=== PATIENT | female | born 1950 | race Caucasian/White ===

== ENCOUNTER 2016-03-11 13:55 | Emergency (ER) | payer OTHER ==
[~2016-03-11] VITALS: Ht 162.6 cm; Wt 88.6 kg
[2016-03-11 14:03] VITALS: BP 136/63; TEMP 98.3
[2016-03-11] MEDS ORDERED: CRESTOR5 MG (14:22)
[2016-03-11] MEDS ORDERED: LYRICA 25MG CAP25 MG (14:22)
[2016-03-11] MEDS ORDERED: CELEBREX50 MG (14:23)
[2016-03-11] MEDS ORDERED: UNKOWN (14:25)
[2016-03-11 14:55] LABS: PH 5 (5-8); SQUAMOUS EPITHELIAL 0-2 /hpf; URINE APPEARANCE Hazy; URINE BACTERIA None Seen /hpf; URINE BILIRUBIN Negative (NEGATIVE); URINE BLOOD 3+ (NEGATIVE); URINE COLOR Yellow; URINE GLUCOSE 1+ (NEGATIVE); URINE KETONE Negative (NEGATIVE); URINE RBC >50 /hpf; URINE UROBILINOGEN Negative (NEGATIVE); URINE WBC 0-2 /hpf
[2016-03-11] MEDS ORDERED: NORCO 325 MG-51 TAB PO (15:39)
[2016-03-11] MEDS ORDERED: AMOXICILLIN 50500 MG PO (15:39)
[2016-03-11 15:44] VITALS: PULSE 73
== END 2016-03-11 15:47 | disposition home or self-care (01) ==
LOC: COL.ER 13:55
PROVIDERS: Emergency Medicine
DX: K04.7 Periapical abscess without sinus (principal); R31.9 Hematuria, unspecified; Z87.442 Personal history of urinary calculi; E11.9 Type 2 diabetes mellitus without complications; Z79.84 Long term (current) use of oral hypoglycemic drugs; I10 Essential (primary) hypertension

== ENCOUNTER 2018-05-24 17:21 | Emergency (ER) | payer MEDICARE ==
[~2018-05-24] VITALS: Ht 162.6 cm; Wt 90.0 kg
[~2018-05-24 17:21] MED LIST: AMOXICILLIN 50500 MG PO; CELEBREX50 MG; CRESTOR5 MG; LYRICA 25MG CAP25 MG; NORCO 325 MG-51 TAB PO; UNKOWN
[2018-05-24] MEDS ORDERED: HCTZ12.5TAB (17:38)
[2018-05-24 18:02] LABS: BASO # 0.1 (0.0-0.2); BASO % 0.7 % (0.0-2.0); EOS # 0.1 (0.0-0.7); EOS % 1.8 % (0-4.0); GRAN # 4.6 (1.4-6.5); HEMOGLOBIN 13.6 g/dl (12.5-16.0); LYMPH # 1.9 (1.2-3.4); LYMPH % 26.7 % (20.0-51.0); MEAN CELL VOLUME 93 fl (80.0-100.0); MEAN CORPUSCULAR HEMOGLOBIN 31 pg (27.0-31.0); MEAN CORPUSCULAR HGB CONC 33 g/dl (33.0-37.0); MEAN PLATELET VOLUME 8.9 fl (7.4-10.4); MONO # 0.4 (0.1-0.6); MONO % 6.1 % (1.7-9.3); PLATELET COUNT 248 K/mm3 (130-400); REDCELL DISTRIBUTION WIDTH-CV 12.7 % (11.5-14.5)
[2018-05-24 18:10] LABS: ALBUMIN 4.2 gm/dL (3.5-5.0); BILIRUBIN,TOTAL 0.4 mg/dL (0.0-1.0); CALCIUM 10.2 mg/dL (8.4-10.2); CREATININE, serum 0.78 (0.52-1.25); POTASSIUM 3.8 mmol/L (3.4-5.0); TOTAL PROTEIN 7.5 gm/dL (6.4-8.2)
[2018-05-25 08:19] VITALS: BP 154/77; PULSE 95; TEMP 98.6
== END 2018-05-25 08:33 | disposition short-term general hospital (02) ==
LOC: COL.ER 17:21
PROVIDERS: Emergency Medicine
DX: S22.061A Stable burst fracture of T7-T8 vertebra, initial encounter for closed fracture (principal); S40.011A Contusion of right shoulder, initial encounter; S70.01XA Contusion of right hip, initial encounter; I10 Essential (primary) hypertension; E11.9 Type 2 diabetes mellitus without complications; G89.29 Other chronic pain; M54.9 Dorsalgia, unspecified; W03.XXXA Other fall on same level due to collision with another person, initial encounter; Y92.410 Unspecified street and highway as the place of occurrence of the external cause
CPT/HCPCS: J1170; J2405; J3010; J7040

== ENCOUNTER 2018-05-29 09:44 | Inpatient (IN) | payer MEDICARE ==
[~2018-05-29] VITALS: Ht 162.6 cm; Wt 90.7 kg
[~2018-05-29 09:44] MED LIST changes: +CRESTOR 10MG10 MG PO; -CRESTOR5 MG; +HCTZ 25MG TAB25 MG PO; +LYRICA 150MG C150 MG PO; -LYRICA 25MG CAP25 MG
[2018-05-29 14:23] VITALS: BP 124/55; PULSE 99; TEMP 98.1
[2018-05-29] MEDS ORDERED: DAZIDOX10 MG PO (16:01)
[2018-05-29] MEDS ORDERED: ZANAFLEX2 MG PO (16:02)
[2018-05-29] MEDS ORDERED: CYMBALTA 30MG30 MG PO (16:03)
[2018-05-29] MEDS ORDERED: MOTRIN 200200 MG/TAB PO (16:05)
[2018-05-29] MEDS ORDERED: NEURONTIN300 MG/CAP PO (16:06)
[2018-05-29] MEDS ORDERED: NORCO 325 MG-101 TAB PO (16:08)
[2018-05-29] MEDS ORDERED: ASPERCREME1 EACH TP (16:12)
[2018-05-29] MEDS ORDERED: MELATONIN5 M1 SL (16:15)
[2018-05-29] MEDS ORDERED: GLUCOPHAGE500 MG/TAB PO (17:42)
[2018-05-29] MEDS ORDERED: PRINIVIL10 MG PO (17:42)
[2018-05-29] MEDS ORDERED: SYNTHROID0.075 MG/T PO (17:42)
[2018-05-29] MEDS ORDERED: MAGNESIUM200 MG PO (17:43)
[2018-05-29] MEDS ORDERED: VITAMIN D31000 I1 PO (17:44)
--- NOTE | 2018-05-29 18:13 | NUR ---
Pt in wheelchair, TLSO brace in place, off unit with son. Agreeable to return at 1830
[2018-05-29] MEDS ORDERED: LOVENOX 3030 MG/0.3 SQ (18:20)
[2018-05-29 18:45] VITALS: BP 101/32; PULSE 95; TEMP 97.7
[2018-05-30 04:26] VITALS: BP 135/66; PULSE 103; TEMP 98.4
--- NOTE | 2018-05-30 10:19 | NUR ---
Call placed to ortho office awaiting a return call with clairification on use of brace with shower/bath.
--- NOTE | 2018-05-30 10:25 | NUR ---
Patient currently with therapy at this time. Patient having back pain today and given prn pain meds as well as scheduled pain meds. Will continue to monitor. Has bruising to right hip and side. Tolerating log roll this morning with putting on brace and then sitting up in bed. She was a two assist with sitting up in bed this morning. Patient uses walker for ambulation. She does not use a stool riser. Placed call to Dr. Lamar regarding an order for UA/UC. Awaiting a return call.
--- NOTE | 2018-05-30 13:23 | NUR ---
Received orders for a UA/UC and will collect this afternoon. Patient was also started on a probiotic see new orders.
--- NOTE | 2018-05-30 15:28 | NUR ---
SYD soto met with patient to complete intake. Patient lives in [place] with her (Narayan) and grandson. Patient's PCP is Dr. Brandon Wiggins and she uses the [facility]. Patient does not use any DME and was independent with ADLs prior to her fall and hospitalization but now requires assistance. Patient does not have a DPOA-HC completed but was interested in obtaining the form to look over and possibly complete later. SYD soto provided. Patient's ultimate goal is to return home with her family. SYD soto informed patient of the weekly team conference and team notes, as well as family conferences. SW to continue to follow to ensure safe discharge from [facility].
[2018-05-30 18:36] LABS: COLLECTION METHOD CLEAN CATCH
[2018-05-30 18:44] LABS: MUCOUS Present /lpf; PH 5 (5-8); URINE APPEARANCE Cloudy; URINE BACTERIA Many /hpf; URINE BILIRUBIN Negative (NEGATIVE); URINE BLOOD 1+ (NEGATIVE); URINE COLOR Yellow; URINE GLUCOSE Negative (NEGATIVE); URINE KETONE Negative (NEGATIVE); URINE LEUKOCYTE ESTERASE 1+ (NEGATIVE); URINE NITRATE Negative (NEGATIVE); URINE PROTEIN(semi-quant) Negative (NEGATIVE); URINE RBC 0-2 /hpf
[2018-05-30 18:50] VITALS: BP 99/52; PULSE 95; TEMP 98.1
--- NOTE | 2018-05-30 19:24 | NUR ---
UA was collected and was sent to lab.
--- NOTE | 2018-05-30 23:00 | NUR ---
ASSISTED TO BED WITH TSLO BRACE IN PLACE. MOVING SLOWLY. SEE MAR FOR MEDS GIVEN. ONCE IN BED ASSISTED TO TAKE TSLO OFF. SPIN[employer] USED. RT HERE FOR CPAP PLACEMENT. CALL LIGHT IN REACH. BED ALARM SET.
[2018-05-31 05:05] VITALS: BP 113/77; PULSE 100; TEMP 97.1
--- NOTE | 2018-05-31 14:51 | NUR ---
Patient attended therapies this morning. She tolerated diet well today. Patient given prn pain meds with good effect to assist with back pain. Patient went outside with family this afternoon and visited. Denies any questions at this time. She currently is sitting in her recliner, call light in reach, alarm on and slip proof socks are on. Will continue to monitor.
[2018-05-31 18:19] VITALS: BP 126/61; PULSE 112; TEMP 98.7
--- NOTE | 2018-05-31 20:30 | NUR ---
ASSISTED TO BR FROM RECLINER. TSLO IN PLACE. STEADY GAIT WITH WALKER. VOIDED. URINE WAS CLEAR YELLOW. NO ODOR. PT NEEDED ASSIST WITH MERVAT CARE. PT TO BED. TSLO OFF. PT C/O BACK ITCHING ALL OVER. WASHED BACK AND APPLIED POWDER. SCD'S ON BILAT. SEE MAR FOR SCHEDULED PAIN MED GIVEN. CALL LIGHT IN REACH BED ALARM SET.
[2018-06-01 06:17] VITALS: BP 152/64; PULSE 100; TEMP 98.5
--- NOTE | 2018-06-01 07:25 | NUR ---
Report from ALFREDO Delong. Pt called to get assistance donning TLSO before getting out of bed. SCDs off. Donned cotton undershirt, binder, TLSO brace. Urine was cloudy with foul odor. Large void, 700 ml. SCDs off as pt returned to chair.
--- NOTE | 2018-06-01 07:45 | NUR ---
Pt requested pain med with gabapentin before eating, brought scheduled oxycodone and gabapenting, pt took meds, then asked about the Deport. [facility] pt about concern taking too many narcs at the same time. Will bring Deport in one hour.
--- NOTE | 2018-06-01 12:15 | NUR ---
Pt to wheelchair for visit off unit with and granddaughter.
--- NOTE | 2018-06-01 13:46 | NUR ---
Pt in room with family visiting, finished lunch.
--- NOTE | 2018-06-01 15:35 | NUR ---
Pt called to return to bed. Enc pt to toilet first, agreeable. Pt c/o pain 07/21 but declined pain med, thinks resting will help. Alarm on, call light in reach, kept TLSO brace in place after offering to remove. SCDs to BLE.
[2018-06-01 18:58] VITALS: BP 137/72; PULSE 102; TEMP 98.7
--- NOTE | 2018-06-01 21:00 | NUR ---
AMB IN [place] WITH WALKER & TSLO IN PLACE. STEADY GAIT. TO MEDICAL DEPARTMENT AND BACK. SBA ONLY. TO BR. VOIDED WITHOUT DIFFICUTLY YELLOW CLEAR NON ODORUOUS URINE. ENC PO FLUIDS. SCHEDULED OXYCODONE GIVEN PRIOR TO AMB. READY FOR BED. TSLO & BINDER REMOVED FOR THE NIGHT. CPAP READY FOR PLACEMENT. CALL LIGHT IN REACH. BED ALARM SET.
--- NOTE | 2018-06-02 05:30 | NUR ---
GAVE PAIN MEDICATION PRIOR TO ACTIVITY THEN PLACED TSLO AND ASSISTED WITH DRESSING THIS AM. PT VERBALIZES CONCERN AND ANXIETY RE ABLE TO MANAGE THIS AT HOMEAS IS NOT HELPFUL IN THESE THINGS. WILL LEAVE MESSAGE FOR PT REGARDING THIS ISSUE. AMB TO BR WITH WHEELED WALKER. VOIDED W/O DIFFICULTY. URINE YELLOW AND CLEAR THIS AM. PT DENIES DYSURIA, FLANK PAIN AND IS AFEBRILE. SBA TO RECLINER. CALL HEATHER REACH. CHAIR ALARM SET.
[2018-06-02 07:06] VITALS: BP 144/57; PULSE 104; TEMP 97.7
--- NOTE | 2018-06-02 10:59 | NUR ---
Patient reported that she started having a cough yesterday, lungs sound clear and cough is non productive.
[2018-06-02 12:42] LABS: BASO # 0.1 (0.0-0.2); BASO % 0.9 % (0.0-2.0); EOS # 0.2 (0.0-0.7); EOS % 3.2 % (0-4.0); GRAN # 3.2 (1.4-6.5); GRAN % 55.7 % (42.2-75.2); HEMOGLOBIN 12.5 g/dl (12.5-16.0); LYMPH # 1.9 (1.2-3.4); LYMPH % 33.1 % (20.0-51.0); MEAN CELL VOLUME 94 fl (80.0-100.0); MEAN CORPUSCULAR HEMOGLOBIN 31 pg (27.0-31.0); MEAN CORPUSCULAR HGB CONC 33 g/dl (33.0-37.0); MEAN PLATELET VOLUME 9.1 fl (7.4-10.4); MONO # 0.4 (0.1-0.6); MONO % 6.2 % (1.7-9.3); PLATELET COUNT 357 K/mm3 (130-400); RED BLOOD COUNT 4.03 M/mm3 (4.10-5.30)
[2018-06-02 14:24] LABS: COLLECTION METHOD CATHETER
[2018-06-02 14:46] LABS: MUCOUS Present /lpf; PH 6 (5-8); SQUAMOUS EPITHELIAL 0-2 /hpf; URINE APPEARANCE Clear; URINE BACTERIA Moderate /hpf; URINE BILIRUBIN Negative (NEGATIVE); URINE BLOOD 1+ (NEGATIVE); URINE COLOR Yellow; URINE GLUCOSE Negative (NEGATIVE); URINE KETONE Negative (NEGATIVE); URINE LEUKOCYTE ESTERASE Negative (NEGATIVE); URINE NITRATE Positive (NEGATIVE); URINE PROTEIN(semi-quant) Negative (NEGATIVE); URINE RBC 0-2 /hpf; URINE UROBILINOGEN Negative (NEGATIVE)
--- NOTE | 2018-06-02 17:30 | NUR ---
Patient attended all therapies today. Tolerated diet well. She was made Independent in her room and in the hallway. Call placed to Neuro surgeon Dr. Rachel Yang [phone]. See new orders that is okay to take brace off in shower, but only if she is placed in shower chair, brace removed, no standing/turning/bending, then brace replaced following shower when still sitting in shower chair. Straight cath completed and sent to Lab. See new orders for CIPRO. Patient's pain to back kept under control with prn pain meds. They were effective this shift. Patient denies questions at this time.
[2018-06-02 18:05] VITALS: BP 131/44; PULSE 102; TEMP 98.3
--- NOTE | 2018-06-02 21:45 | NUR ---
PT WAS ASSISTED TO BATHROOM AND THEN TO BED. BLACK BRACE REMOVED AND PJ'S PUT ON. PT NEEDED PAIN MEDICATION PRIOR TO BED, PRN NORCO GIVEN AND SCHEDULED MEDS PROVIDED.
--- NOTE | 2018-06-03 05:31 | NUR ---
PT AWOKE THIS MORNING STATED THAT SHE SLEPT OKAY, DID HAVE C/O HEADACHE AND NEEDED PRN PAIN PILL. THIS NURSE PROVIDED PAIN PILL. PT WAS ASSISTED TO PUT ON BACK BRACE THEN HELPED TO THE BATHROOM AND WAS READY TO GET DRESSED FOR THE DAY. NO OTHER ISSUES OR CONSERNS VOICED AT THIS TIME.
[2018-06-03 05:32] VITALS: BP 148/77; PULSE 102; TEMP 98.1
--- NOTE | 2018-06-03 09:35 | NUR ---
Report from ALFREDO Padgett. Pt has TLSO brace in place, took norco for pain 10/21, sandals in place, pt talking on cell phone. Glasses and call lt in reach, solomon mod I in rm w/ walker.
--- NOTE | 2018-06-03 13:44 | NUR ---
SYD met with patient and about scheduling a family conference tomorrow. Patient's is not available tomorrow. He reports he is here today during patient's therapy and will get any questions he has answered today. Patient and are interested in getting a four wheeled walker. SYD informed them that they would have to pay upfront for the walker and then they would get reimbursed the amount that Medicare pays for a standard walker. Patient's reports he will find one that is cheaper than going through insurance. He did request SW get a prescription for the 4WW. SDY will obtain an order tomorrow during the IPR meeting.
[2018-06-03 15:15] VITALS: BP 135/57; PULSE 95; TEMP 98.5
--- NOTE | 2018-06-03 15:47 | NUR ---
Pt bedresting comfortably in bed. Narayan, , stayed for family training on application of TLSO brace with OT session this afternoon.
--- NOTE | 2018-06-03 17:24 | NUR ---
Pt got out of bed for supper. TLSO in place.
--- NOTE | 2018-06-03 20:40 | NUR ---
Shift assessment complete. Patient independent in room, sitting on couch. Brace in on. C/O 9/10 back pain. Prn pain medication given. Will continue to assess.
--- NOTE | 2018-06-04 00:32 | NUR ---
Patient c/o 6/10 back pain. Denies need for pain medication at this time. Will continue to assess.
[2018-06-04 05:13] VITALS: BP 130/40; PULSE 88; TEMP 98
--- NOTE | 2018-06-04 05:52 | NUR ---
Patient awake, brace placed on, with assist. Ambulated to BR. Patient c/o 8/10 pain in back. Prn pain medication given. Will continue to assess.
[2018-06-04 12:03] LABS: CREATININE, serum 0.6 (0.52-1.25); MAGNESIUM 1.4 mg/dL (1.6-2.3)
--- NOTE | 2018-06-04 14:43 | NUR ---
SW attended a family conference with patient. Her was unable to attend. IPR director, PT, and OT were also present. IPR director started by explaining the purpose of the conference. PT and OT also report that patient has made good progress and will be able to discharge home tomorrow. Patient will receive outpatient PT and OT. Patient reports no questions or concerns at this time. SYD will follow up later with IPR team conference notes.
--- NOTE | 2018-06-04 15:07 | NUR ---
Call placed to lab to have urine sent out for culture that was collected the other day. It will be cultured out. Called and made appointments for patient's discharge tomorrow. See Discharge Summary.
--- NOTE | 2018-06-04 15:36 | NUR ---
Patient resting in recliner at this time. Call light in reach and is Independent in her room. Patient wearing her TLSO at this time. Patient has had pain to back today and given prn pain meds with good effect. Will continue to monitor.
[2018-06-04 18:41] VITALS: BP 133/54; PULSE 105; TEMP 98.2
--- NOTE | 2018-06-04 20:04 | NUR ---
Patient will be discharging tomorrow. All appointments have been made.
--- NOTE | 2018-06-04 21:00 | NUR ---
PT UP IN ROOM. MOD I WITH WALKER. TSLO ON AT THIS TIME. PT VERBALIZES ANXIOUS ABOUT GOING HOME. PROVIDED EMOTIONAL SUPPORT.
[2018-06-05 05:20] VITALS: BP 134/51; PULSE 80; TEMP 97.9
--- NOTE | 2018-06-05 05:22 | NUR ---
PT RESTED INTERMITTENTLY THROUGHT THE NIGHT. WORE HER OWN CPAP. NO NEEDS AT THIS TIEM.
--- NOTE | 2018-06-05 10:07 | NUR ---
Pt states she wants OP PT, OT at [facility].
[2018-06-05] MEDS ORDERED: CIPRO 500MG TA500 MG PO (13:47)
[2018-06-05] MEDS ORDERED: ZTLIDO1 EACH TP (13:49)
[2018-06-05] MEDS ORDERED: TYLENOL 325MG325 MG PO (13:50)
[2018-06-05] MEDS ORDERED: PROBIOTIC ACID1 EAC3 PO (13:50)
[2018-06-05] MEDS ORDERED: NORCO 325 MG-101 TAB PO (14:00)
[2018-06-05] MEDS ORDERED: DAZIDOX10 MG PO (14:00)
--- NOTE | 2018-06-05 15:51 | NUR ---
SW met with patient about discharge today. Patient will discharge home today (06/05) and receive outpatient PT and OT. SW presented IM. Patient signed and did not request a copy.
--- NOTE | 2018-06-05 20:19 | NUR ---
Printed pt health summary, discharge summary, and discharge home med list. Reviewed with pt (declined both offers to review with spouse also). Stressed importance of follow up appts. Provided printed prescriptions for pain meds. Belongings gathered by pt including glasses, TLSO in place, phone and material handling equipment stevedore, shoes and clothes. Pt transported via wheelchair by ALEXUS Devries for ride home with spouse. Pt denied any questions.
--- NOTE | 2018-06-05 20:21 | NUR ---
Per pt's request, faxed face sheet, H&P, DC summary and progress note to [facility] and to Pain clinic dr recieved "OK" fax recipts for both.
== END 2018-06-05 16:00 | disposition home or self-care (01) | DRG 560 ==
PROVIDERS: ADMIT Internal Medicine
DX: S22.069D Unspecified fracture of T7-T8 vertebra, subsequent encounter for fracture with routine healing (principal); N39.0 Urinary tract infection, site not specified; W18.30XD Fall on same level, unspecified, subsequent encounter; I10 Essential (primary) hypertension; E11.9 Type 2 diabetes mellitus without complications; E03.9 Hypothyroidism, unspecified; F34.1 Dysthymic disorder; G47.33 Obstructive sleep apnea (adult) (pediatric); E78.5 Hyperlipidemia, unspecified; M48.061 Spinal stenosis, lumbar region without neurogenic claudication; M25.551 Pain in right hip; S49.91XD Unspecified injury of right shoulder and upper arm, subsequent encounter; B96.20 Unspecified Escherichia coli [E. coli] as the cause of diseases classified elsewhere
CPT/HCPCS: 99222-AI; 99232-AI; 99239; J1650; J1815

== ENCOUNTER → 2018-07-16 | Outpatient (CLI) | payer MEDICARE ==
[~2018-07-16] MED LIST changes: +ASPERCREME1 EACH TP; +CIPRO 500MG TA500 MG PO; +CYMBALTA 30MG30 MG PO; +DAZIDOX10 MG PO; +GLUCOPHAGE500 MG/TAB PO; +LOVENOX 3030 MG/0.3 SQ; +MAGNESIUM200 MG PO; +MELATONIN5 M1 SL; +MOTRIN 200200 MG/TAB PO; +NEURONTIN300 MG/CAP PO; +NORCO 325 MG-101 TAB PO; +PRINIVIL10 MG PO; +PROBIOTIC ACID1 EAC3 PO; +SYNTHROID0.075 MG/T PO; +TYLENOL 325MG325 MG PO; +VITAMIN D31000 I1 PO; +ZANAFLEX2 MG PO; +ZTLIDO1 EACH TP
== END ==
LOC: COL.RAD 14:29
DX: M47.814 Spondylosis without myelopathy or radiculopathy, thoracic region (principal); S22.060D Wedge compression fracture of T7-T8 vertebra, subsequent encounter for fracture with routine healing; Z98.1 Arthrodesis status

== ENCOUNTER 2021-02-01 18:03 | Emergency (ER) | payer MEDICARE ==
[~2021-02-01 18:03] MED LIST changes: +CYMBALTA 60MG60 MG PO; +PLAQUENIL 200M200 MG PO
[2021-02-01 18:11] VITALS: TEMP 97.6
[2021-02-01 19:35] LABS: EOS # 0.1 K/mm3 (0.0-0.7); EOS % 2.6 % (0.0-4.0); GRAN # 2.2 K/mm3 (1.4-6.5); GRAN % 53.1 % (42.2-75.2); LYMPH # 1.5 K/mm3 (1.2-3.4); LYMPH % 35.4 % (20.0-51.0); MEAN CELL VOLUME 87 fl (80.0-100.0); MEAN CORPUSCULAR HEMOGLOBIN 28 pg (27-31); MEAN CORPUSCULAR HGB CONC 32 g/dl (33.0-37.0); MEAN PLATELET VOLUME 8.9 fl (7.4-10.4); MONO # 0.3 K/mm3 (0.1-0.6); MONO % 7.7 % (1.7-9.3); PLATELET COUNT 257 K/mm3 (130-400); RED BLOOD COUNT 3.95 M/mm3 (4.10-5.30); REDCELL DISTRIBUTION WIDTH-CV 13.4 % (11.5-14.5)
[2021-02-01 19:41] LABS: HEMATOCRIT 34.4 % (37.0-47.0)
[2021-02-01 19:53] LABS: ALBUMIN 3.8 gm/dL (3.4-4.8); BILIRUBIN,TOTAL 0.3 mg/dL (0.2-1.2); CALCIUM 9.1 mg/dL (8.4-10.2); CREATININE, serum 0.62 mg/dL (0.57-1.11); POTASSIUM 4.1 mmol/L (3.5-4.5); TOTAL PROTEIN 6.3 gm/dL (6.2-8.1)
[2021-02-01 20:09] VITALS: BP 134/72; PULSE 81
== END 2021-02-01 20:09 | disposition home or self-care (01) ==
LOC: COL.ER 18:03
PROVIDERS: Physician Assistant
DX: R22.42 Localized swelling, mass and lump, left lower limb (principal); M79.662 Pain in left lower leg; M79.7 Fibromyalgia; I10 Essential (primary) hypertension; Z79.899 Other long term (current) drug therapy; Z79.1 Long term (current) use of non-steroidal anti-inflammatories (NSAID)

== ENCOUNTER → 2021-10-11 | Outpatient (CLI) | payer MEDICARE | LOC: COL.RAD 08:24 | DX: M47.816 Spondylosis without myelopathy or radiculopathy, lumbar region (principal); M48.061 Spinal stenosis, lumbar region without neurogenic claudication; Z98.1 Arthrodesis status | CPT/HCPCS: A9575 ==